=== PATIENT | male | born 1975 | race Caucasian/White ===

== ENCOUNTER 2021-02-02 17:17 | Emergency (ER) | payer OTHER, SELFPAY ==
[2021-02-02 17:31] VITALS: BP 128/97; PULSE 70; RESP 16; TEMP 36.8; O2SAT 96; BMI 37.5
--- NOTE | 2021-02-02 18:35 | ED_ITS ---
HPI - Neuro Symptoms/Deficit General Chief Complaint: Neuro Symptoms/Deficit Stated Complaint: facial drooping Time Seen by Provider: 02/02/21 18:35 Source: patient Mode of arrival: ambulatory Limitations: no limitations History of Present Illness HPI Narrative: Patient has significant past medical history notice right facial numbness and droop 2 days ago unable to close his right eye no other deficit no history of Lyme disease no headache no rash Related Data Previous Rx's Medication Instructions Recorded prednisone 60 mg PO DAILY 7 Days #21 tab 02/02/21 valacyclovir [Valtrex] 1,000 mg PO TID 7 Days #21 tab 02/02/21 white petrolatum-mineral oil 1 appl OPHTHALMIC-RIGHT BEDTIME 02/02/21 [Refresh Lacri-Lube] #3.5 g Allergies Allergy/AdvReac Type Severity Reaction Status Date / Time shrimp [SHRIMP] Allergy Mild SWELLING Unverified 06/11/20 16:34 Cats Allergy Unknown sneezing Uncoded 11/10/15 00:00 shellfish Allergy Unknown Uncoded 10/09/19 00:00 Shrimp Allergy Unknown throat Uncoded 11/10/15 00:00 irritation Review of Systems Review of Systems: Yes all other systems are reviewed and are negative [facility] Past Medical History Medical History HTN (hypertension) Social History Social History Advance Directives: No Advance Directives Information Provided: Yes Physical Exam Vital Signs: Vital Signs: Last Vital Signs Temp 98.2 F 02/02/21 17:31 Pulse 88 02/02/21 19:51 Resp 18 02/02/21 19:51 BP 126/85 02/02/21 19:51 Pulse Ox 97 02/02/21 19:51 Body Mass Index 37.5 Appearance: Alert. Oriented X3. No acute distress. Eyes: PERRLA, No Nystagmus ENT: Pharynx normal. Oral Mucosa moist Neck: Normal inspection. Neck supple. CVS: Normal heart rate and rhythm. Pulses normal. Respiratory: No respiratory distress. Equal air entry bilateral, no wheezing/rales/rhonchi Abdomen: Soft and nontender. Bowel sounds are present, no mass palpable, no CVA tenderness Skin: Skin warm and dry. Normal skin color. Normal skin turgor. Extremities: No lower extremity edema. No calf tenderness Neuro: Oriented X 3. No motor deficit. No sensory deficit.No cerebellar signs , right-sided Coleman's palsy MDM - Neuro Symptoms/Deficit MDM Narrative Medical decision making narrative: Patient with right-sided Coleman's palsy without any other central involvement and symptoms will discharge patient on prednisone and Valtrex Lab Data Labs: Lab Results 02/02/21 Range/Units 18:44 POC Glucose 96 (60-115) mg/dL Discharge Plan Discharge Clinical Impression: Coleman's palsy Patient Disposition: Home, Self-Care Instructions: Coleman Palsy (ED) Additional Instructions: Care of the eyes as advised. Take medication as prescribed. Facial muscle exercises as advised. Follow up with neurologist if not better in 2-3 weeks Prescriptions: New prednisone 20 mg tablet 60 mg PO DAILY 7 Days Qty: 21 RF: 0 valacyclovir [Valtrex] 1 gram tablet 1,000 mg PO TID 7 Days Qty: 21 RF: 0 Refresh Lacri-Lube 56.8-42.5 % ointment 1 appl ophthalmic-Right BEDTIME Qty: 3.5 RF: 2 Referrals: Billy Gan MD [Physician] - 2 weeks Interventions: ED Discharge Assessment Last Done: 02/02/21 19:55 Discharge Date/Time: 02/02/21 19:56
[2021-02-02 18:48] LABS: Glucose, Whole Blood 96 mg/dL (60-115)
[2021-02-02] MEDS: predniSONE 20 MG TABLET 60 MG PO (18:50)
[2021-02-02 19:51] VITALS: BP 126/85; PULSE 88; RESP 18; O2SAT 97
== END 2021-02-02 19:56 | disposition home or self-care (01) ==
PROVIDERS: Emergency Provider Internal Medicine
DX: G51.0 Bell's palsy (principal); I10 Essential (primary) hypertension
CPT/HCPCS: 82947; 99283; 99284

== ENCOUNTER 2021-11-17 17:59 | Emergency (ER) | payer OTHER, SELFPAY ==
--- NOTE | ~2021-11-17 | CT_ITS ---
EXAMINATION: CT ABDOMEN AND PELVIS WITHOUT CONTRAST CLINICAL INFORMATION: Right flank pain, right lower quadrant pain, rule out kidney stone, appendicitis COMPARISON: None. TECHNIQUE: Multidetector volumetric imaging was performed from the lung bases through the pubic symphysis. Sagittal and coronal reformatted images were obtained on the technologist workstation. This CT examination was performed using dose optimization techniques as appropriate, variously including the following: *Automated exposure control *Adjustment of mA and/or kV according to patient size (this includes techniques or standardized protocols for targeted exams where dose is matched to indication/reason for exam; i.e. extremities or head) *Use of iterative reconstruction technique FINDINGS: The lack of intravenous contrast limits evaluation of the solid visceral organs including the liver, spleen, pancreas, and kidneys. LUNG BASES: The visualized lung bases are unremarkable. LIVER, GALLBLADDER, AND BILIARY TREE: Limited non-contrast evaluation is normal. No gross focal hepatic lesion. Normal liver size and contour. No gross biliary ductal dilation. The gallbladder is unremarkable with no evidence of radiopaque gallstones, gallbladder wall thickening, or obvious pericholecystic inflammatory changes. PANCREAS: Limited non-contrast evaluation is normal. No aaron-pancreatic fluid. SPLEEN: Limited non-contrast evaluation is normal. ADRENAL GLANDS: Normal; no adrenal mass. KIDNEYS AND URETERS: Punctate 1 to 2 mm calcification seen in the right renal hilum, possibly nonobstructing calculi or vascular calcifications. No left-sided calculi seen. No hydronephrosis or hydroureter bilaterally. GASTROINTESTINAL TRACT: Small bowel and colon are non-dilated. No bowel wall thickening. No pericolonic inflammatory changes to suggest colitis or diverticulitis. Normal well-seen appendix. ABDOMINAL WALL: No hernia seen. LYMPH NODES: No lymphadenopathy. VASCULAR: Normal caliber abdominal aorta. BLADDER: Unremarkable. PELVIC VISCERA: Normal noncontrast appearance of the prostate and seminal vesicles. OSSEOUS STRUCTURES: No acute or suspicious osseous abnormalities. CT/CT abdomen pelvis wo con IMPRESSION: Normal appendix. No evidence of obstructive uropathy. Tiny 1 to 2 mm calcifications in the right kidney may represent vascular calcifications or nonobstructing calculi.
[2021-11-17 18:02] VITALS: BP 135/96; PULSE 93; RESP 18; TEMP 36.9; O2SAT 96; BMI 38.9
[2021-11-17 18:14] LABS: MANUAL DIFF FLAG NO
[2021-11-17 18:17] LABS: Basophils Absolute Auto 0.1 X10*3/uL (0.0-0.2); Basophils Percent Auto 0.9 % (0-2); Eosinophils Absolute Auto 0.3 X10*3/uL (0.0-0.4); Eosinophils Percent Auto 3.6 % (0-4); Hematocrit 49.5 % (42.0-52.0); Imm Gran Abs Auto 0.01 X10*3/uL (0.00-0.03); Imm Gran Pct Auto 0.1 % (0.0-0.4); Lymphocytes Absolute Auto 1.8 X10*3/uL (1.2-4.9); Lymphocytes Percent Auto 25.8 % (20-40); Mean Corpuscular HGB Conc 34.3 g/dl (31.0-36.0); Mean Corpuscular Hemoglobin 30.9 pg (27.0-33.0); Mean Corpuscular Volume 89.8 fL (80.0-98.0); Mean Platelet Volume 10.7 fL (9.4-12.4); Monocytes Absolute Auto 0.5 X10*3/uL (0.1-1.2); Monocytes Percent Auto 6.7 % (2-11); Neutrophils Absolute Auto 4.4 x10*3/uL (2.0-8.3); Neutrophils Percent Auto 62.9 % (45-73); Platelet Count 226 X10*3/uL (160-400); Red Blood Count 5.51 X10*6/uL (4.60-5.80); White Blood Count 6.9 X10*3/uL (4.8-10.8)
[2021-11-17 18:28] LABS: Anion Gap 13 (12-20); Blood Urea Nitrogen 17 mg/dL (9-16); Calcium 9.5 mg/dL (8.4-10.2); Carbon Dioxide 24 mmol/L (22-29); Chloride 105 mmol/L (96-108); Creatinine Clr Calc Pharmacy 97.3; Estimated Glomerular Filt Rate 56; Glucose Random 108 mg/dL (60-115); Potassium 4.2 mmol/L (3.3-5.1); Sodium 138 mmol/L (135-145)
[2021-11-17 18:34] LABS: Appearance Urine CLEAR; Color Urine DK YELLOW; Glucose Urine UA NEG (NEG); Leukocyte Esterase Urine NEG (NEG); Nitrite Urine NEG (NEG); PH 5.5 (5.0-8.0); Specific Gravity - Urine >= 1.030 (1.005-1.025); Urine Blood NEG (NEG); Urine Ketones NEG (NEG); Urine Protein NEG (NEG-TRACE)
[2021-11-17 18:49] LABS: Amorphous Sediment Urine 1+ /LPF; Mucus Urine 4+ /LPF; RBC Urine 0-2 /HPF (0); Squamous Epithelial Cell Urine 2+ /LPF; WBC Urine 0 /HPF (0-4)
[2021-11-17 20:27] VITALS: BP 146/95; PULSE 78; RESP 18; TEMP 36.9; O2SAT 96
--- NOTE | 2021-11-17 20:27 | ED_ITS ---
HPI - Abdominal Pain General Chief Complaint: Abdominal Pain Stated Complaint: sharp pain right side abd Time Seen by Provider: 11/17/21 20:08 Source: patient Mode of arrival: ambulatory Limitations: no limitations History of Present Illness HPI narrative: 45-year-old male who presents emergency department for evaluation of right sided abdominal pain x3 days. Patient states that 3 days prior the pain came on gra dually. He states initially the pain was intermittent and worse with movement however the pain then became constant. He describes the pain as a burning sensation. The pain is 5/10 at its worst. The patient states that he had kidney stones proximally 3 years prior and the pain was different with his kidney stone. He states that that time he felt the urge to move his bowels and the pain was more of a sharp pain which was 8/10. The patient denied fever, chills, sore throat, cough, chest pain, shortness of breath, nausea, vomiting, diarrhea, changes bowel movements. He denied frequency, urgency or dysuria. He has not noticed any hematuria. He did not take any medications for his pain. Patient states that he received 2 COVID 19 opentabs vaccinations and a booster vaccination. Related Data Previous Rx's Medication Instructions Recorded prednisone 20 mg tablet 60 mg PO DAILY 7 Days #21 tab 02/02/21 valacyclovir 1 gram tablet 1,000 mg PO TID 7 Days #21 tab 02/02/21 (Valtrex) white petrolatum-mineral oil 56.8 1 appl OPHTHALMIC-RIGHT BEDTIME 02/02/21 %-42.5 % eye ointment (Refresh #3.5 g Lacri-Lube) morphine 15 mg immediate release 15 mg PO Q4-6H PRN #10 tab 11/17/21 tablet valacyclovir 1 gram tablet 1,000 mg PO Q8H 7 Days #21 tab 11/17/21 (Valtrex) Allergies Allergy/AdvReac Type Severity Reaction Status Date / Time shrimp [SHRIMP] Allergy Mild SWELLING Verified 11/17/21 18:02 Cats Allergy Unknown sneezing Uncoded 11/17/21 18:02 shellfish Allergy Unknown Swelling Uncoded 11/17/21 18:02 Shrimp Allergy Unknown throat Uncoded 11/17/21 18:02 irritation Review of Systems Review of Systems Yes all other systems are reviewed and are negative [facility] Past Medical History [facility] Narrative: Past medical history: Hypertension, palpitations, kidney stones. Past surgical history: None. Social history: The patient states he vapes nicotine products daily. He denies drinking alcohol recently and states she rarely drinks alcohol. He does use marijuana edibles. Medical History HTN (hypertension) Social History Social History Alcohol intake: current Patient Tobacco Use Status: Current everyday Tobacco user Smoked in Last 30 Days: Yes Use of substances other than those prescribed or required for medical reasons: Yes Substance Use Type: Marijuana Advance Directives: No Physical Exam ED Vital Signs: Vital Signs - 24 hr 11/17/21 18:02 11/17/21 20:27 11/17/21 22:00 Temperature 98.5 F 98.5 F Pulse Rate 93 78 78 Respiratory Rate 18 18 15 Blood Pressure 135/96 H 146/95 H 150/140 H Pulse Oximetry 96 96 98 11/17/21 22:24 Temperature Pulse Rate Respiratory Rate 15 Blood Pressure Pulse Oximetry BMI result Body Mass Index 38.9 Const General: cooperative and no acute distress Orientation/consciousness: oriented to person and oriented to place Limitations: no limitations HENMT Head: Yes normal to inspection, Yes normocephalic and Yes atraumatic Ears: external ears normal General nose exam: Normal external nose present Face and sinus: Yes normal facial exam Mouth: Normal oral and palatal mucosa present Throat: Yes posterior oropharynx normal Eyes General: appearance normal, both eyes and all related structures Pupils: Equal, round and reactive pupils present Neck Neck: Yes normal visual inspection, Yes no lymphadenopathy, Yes trachea midline and Yes supple Chest Chest palpation & inspection: normal inspection of the chest and normal p alpation of entire chest wall Resp Effort & Inspection: normal respiratory effort and able to speak in complete sentences Auscultation: clear to auscultation bilaterally Cardio Rate: regular rate Rhythm: regular rhythm Heart sounds: S1 normal heart sound present, S2 normal heart sound present and no murmurs GI Inspection: Yes normal to inspection Palpation (GI): Soft to palpation, Tenderness to palpation present (GI) in the RLQ (Moderate) and no guarding Auscultation: normal bowel sounds General: Yes no CVA tenderness Back/Spine/Pelvis Back: no CVA tenderness Skin General skin exam: no rashes or lesions noted Neuro General: oriented to person and oriented to place Cranial nerves: Yes CN's II-XII intact bilaterally and Yes Equal, round and reactive pupils present Cognition (Neuro): normal cognition Motor exam (neuro): 5/5 motor strength present throughout Extrem General: Yes normal to inspection Psych Appearance: grossly normal Speech and movement: Normal speech and movement present Affect: normal affect Attitude: cooperative Thought process: Normal thought process present Thought content: Normal thought content present Course Course Course Narrative: 45-year-old male who presents emergency department for evaluation of 3 days of right lower abdominal burning sensation which is been constant. Patient had no other significant symptoms. Vital signs revealed an elevated blood pressure of 135/96 otherwise was unremarkable. Physical examination revealed no rash on the right side of the patient's body. The patient did have right lower abdominal tenderness. Differential includes was not limited to appendicitis, renal colic, ureteral stone, herpes zoster, diverticulitis. Patient had a laboratory evaluation which included a CBC, BMP, urinalysis which was unremarkable. I did order a CT scan of the abdomen pelvis without oral contrast. His pain was treated with both ibuprofen 600 mg orally and Tylenol 975 mg orally. 2305: CT scan of the patient's abdomen pelvis without IV contrast revealed a normal appearing appendix, there was no evidence of an obstructing kidney stone. The patient had a 1-2 mm right kidney stone which is not causes pain. The patient got no relief his pain with oral ibuprofen and Tylenol. He was given morphine 8 mg IM with significant improvement. I did discuss abdominal pain of unclear etiology in shines with the patient. The patient was advised to take Tylenol ibuprofen for pain and for pain not relieved by these medications he was prescribed morphine. He was also given a prescription for valacyclovir the take in the event that he develops a rash. Was advised to follow-up with his PC P and return if his symptoms get worse. MDM - Abdominal Pain Lab Data Result diagrams: 11/17/21 18:10 11/17/21 18:10 Labs: Lab Results 11/17/21 11/17/21 11/17/21 Range/Units 18:10 18:10 18:27 WBC 6.9 (4.8-10.8) X10*3/uL RBC 5.51 (4.60-5.80) X10*6/uL Hgb 17.0 (14.0-18.0) g/dl Hct 49.5 (42.0-52.0) % MCV 89.8 (80.0-98.0) fL MCH 30.9 (27.0-33.0) pg MCHC 34.3 (31.0-36.0) g/dl RDW 12.0 (11.0-16.0) % Plt Count 226 (160-400) X10*3/uL MPV 10.7 (9.4-12.4) fL Immature Gran % (Auto) 0.1 (0.0-0.4) % Neut % (Auto) 62.9 (45-73) % Lymph % (Auto) 25.8 (20-40) % [place] % (Auto) 6.7 (2-11) % Eos % (Auto) 3.6 (0-4) % Baso % (Auto) 0.9 (0-2) % Lymph # (Auto) 1.8 (1.2-4.9) X10*3/uL [place] # (Auto) 0.5 (0.1-1.2) X10*3/uL Eos # (Auto) 0.3 (0.0-0.4) X10*3/uL Baso # (Auto) 0.1 (0.0-0.2) X10*3/uL Abs Immat Gran (auto) 0.01 (0.00-0.03) X10*3/uL Absolute Neuts (auto) 4.4 (2.0-8.3) x10*3/uL Absolute Nucleated RBC 0.000 (0.0-0.012) X10*3/uL Nucleated RBC % (auto) 0.0 (0.0-0.2) /100WBC Sodium 138 (135-145) mmol/L Potassium 4.2 (3.3-5.1) mmol/L Chloride 105 (96-108) mmol/L Carbon Dioxide 24 (22-29) mmol/L Anion Gap 13 (12-20) BUN 17 H (9-16) mg/dL Creatinine 1.39 (0.5-1.4) mg/dL Estim Creat Clear Calc 97.3 Estimated GFR 56 Random Glucose 108 (60-115) mg/dL Calcium 9.5 (8.4-10.2) mg/dL Urine Color DK YELLOW Urine Appearance CLEAR Urine pH 5.5 (5.0-8.0) Ur Specific [place] >= 1.030 H (1.005-1.025) Urine Protein NEG (NEG-TRACE) MG/DL Urine Glucose (UA) NEG (NEG) MG/DL Urine Ketones NEG (NEG) MG/DL Urine Blood NEG (NEG) Urine Nitrite NEG (NEG) Ur Leukocyte Esterase NEG (NEG) Urine RBC 0-2 (0) /HPF Urine WBC 0 (0-4) /HPF Ur Squamous Epith Cells 2+ /LPF Amorphous Sediment 1+ /LPF Urine Bacteria NONE /LPF Urine Mucus 4+ /LPF Discharge Plan Discharge Clinical Impression: Abdominal pain Patient Disposition: Home, Self-Care Instructions: Abdominal Pain (ED), Shingles (ED) Additional Instructions: Your laboratory evaluation was unremarkable. Your urine was unremarkable. The CT scan of your abdomen pelvis without IV contrast revealed a normal calista earing appendix. There was no evidence for obstructing kidney stone or kidney stone in ureter. You have 1 or 2 1 mm stones in your right kidney however these are not causing her pain. At this time, I do not have a clear cause for your pain however if you developed a rash on the right side of your abdomen then you most likely have shingles. If you developed this rash then take the valacyclovir as prescribed. Take ibuprofen 200 mg pills, 3 pills every 6 hours as needed for pain. Take Tylenol (acetaminophen) 2 pills every 4-6 hours as needed for pain. For pain not relieved by ibuprofen or Tylenol take morphine 15 mg pills, 1 pill every 4 hours as needed for pain. This medication will make you sleepy, do not drive or work while taking this medication. Morphine is a narcotic medication and can be addicting. If you are concerned about addiction you can ask the pharmacist for less pills or do not get this prescription filled. Follow-up with your doctor in 2 days. Please return to the emergency department if your symptoms get worse or if you develop any symptoms that are concerning to you. Prescriptions: New morphine 15 mg tablet 15 mg PO Q4-6H PRN (Reason: pain) Qty: 10 0RF Rx Instructions: The patient may ask for partial fill valacyclovir [Valtrex] 1 gram tablet 1,000 mg PO Q8H 7 Days Qty: 21 0RF No Action prednisone 20 mg tablet 60 mg PO DAILY 7 Days Qty: 21 0RF valacyclovir [Valtrex] 1 gram tablet 1,000 mg PO TID 7 Days Qty: 21 0RF Refresh Lacri-Lube 56.8-42.5 % ointment 1 appl ophthalmic-Right BEDTIME Qty: 3.5 2RF
[2021-11-17] MEDS: Ibuprofen 600 MG TABLET PO (20:37)
[2021-11-17] MEDS: Acetaminophen 325 MG TABLET 975 MG PO (20:37)
[2021-11-17 22:00] VITALS: BP 150/140; PULSE 78; RESP 15; O2SAT 98
[2021-11-17 22:24] VITALS: RESP 15
[2021-11-17] MEDS: Morphine Sulfate 10 MG/ML CARTRIDGE 8 MG IM (22:24)
== END 2021-11-17 23:21 | disposition home or self-care (01) ==
PROVIDERS: Emergency Provider Emergency Medicine Emergency Medical Services
DX: R10.31 Right lower quadrant pain (principal); I10 Essential (primary) hypertension; F17.290 Nicotine dependence, other tobacco product, uncomplicated
CPT/HCPCS: 36415; 74176; 80048; 81001; 85025; 96372; 99284; J2270

== ENCOUNTER 2021-12-31 19:09 | Emergency (ER) | payer OTHER, SELFPAY ==
--- NOTE | ~2021-12-31 | XR_ITS ---
EXAMINATION: XR chest 1V CLINICAL INFORMATION: Reason for Exam dyspnea COMPARISON: Chest radiograph 09/25/2019 TECHNIQUE: One view of the chest XR/XR chest 1V FINDINGS/IMPRESSION: Clear lungs. No pneumothorax. No pleural effusion. Normal cardiomediastinal silhouette.
--- NOTE | 2021-12-31 19:13 | ECG_ITS ---
Test Reason : IRREGULAR HEARTBEAT Blood Pressure : / mmHG Vent. Rate : 129 BPM Atrial Rate : 000 BPM P-R Int : 000 ms QRS Dur : 092 ms QT Int : 322 ms P-R-T Axes : 000 -20 060 degrees QTc Int : 471 ms Atrial fibrillation with rapid ventricular response Abnormal ECG When compared with ECG of 25-SEP-2019 21:28, Atrial fibrillation has replaced Sinus rhythm Vent. rate has increased BY 50 BPM Referred By: Generic ED Physician Electronically Signed By:CLIVE TA MD
[2021-12-31 19:38] VITALS: BP 131/88; PULSE 74; RESP 19; TEMP 36.6; O2SAT 96; BMI 37.8
[2021-12-31 19:47] LABS: MANUAL DIFF FLAG NO
[2021-12-31 19:50] LABS: Basophils Absolute Auto 0.1 X10*3/uL (0.0-0.2); Basophils Percent Auto 0.6 % (0-2); Eosinophils Absolute Auto 0.2 X10*3/uL (0.0-0.4); Eosinophils Percent Auto 1.7 % (0-4); Hematocrit 51.4 % (42.0-52.0); Hemoglobin 17.6 g/dl (14.0-18.0); Imm Gran Abs Auto 0.03 X10*3/uL (0.00-0.03); Imm Gran Pct Auto 0.3 % (0.0-0.4); Lymphocytes Percent Auto 21.1 % (20-40); Mean Corpuscular HGB Conc 34.2 g/dl (31.0-36.0); Mean Corpuscular Hemoglobin 30.2 pg (27.0-33.0); Mean Corpuscular Volume 88.2 fL (80.0-98.0); Mean Platelet Volume 10.5 fL (9.4-12.4); Monocytes Absolute Auto 0.8 X10*3/uL (0.1-1.2); Monocytes Percent Auto 8.5 % (2-11); Neutrophils Absolute Auto 6.4 x10*3/uL (2.0-8.3); Neutrophils Percent Auto 67.8 % (45-73); Platelet Count 281 X10*3/uL (160-400); Red Blood Count 5.83 X10*6/uL (4.60-5.80); Red Cell Distribution Width 12.3 % (11.0-16.0); White Blood Count 9.4 X10*3/uL (4.8-10.8)
[2021-12-31 20:00] LABS: Anion Gap 15 (12-20); Blood Urea Nitrogen 14 mg/dL (9-16); Calcium 9.6 mg/dL (8.4-10.2); Carbon Dioxide 22 mmol/L (22-29); Chloride 105 mmol/L (96-108); Estimated Glomerular Filt Rate > 60; Glucose Random 112 mg/dL (60-115); Potassium 4.2 mmol/L (3.3-5.1); Sodium 138 mmol/L (135-145)
[2021-12-31 20:07] LABS: Troponin-I High Sensitivity < 3.5 ng/L (<3.5-35.0)
--- NOTE | 2022-01-01 00:19 | ED_ITS ---
HPI - Chest Pain General Chief Complaint: Chest Pain Stated Complaint: irregular heart beat, SoB Time Seen by Provider: 01/01/22 00:18 Source: patient Mode of arrival: ambulatory Limitations: no limitations History of Present Illness MD complaint: other (palpitations chest heaviness, dyspnea) Pertinent past history: other (similar symptoms but not this long could never find a reason with head nurse) Onset (ago): day(s) (3am) Timing of current episode: constant Prior episodes: Yes Onset: other (he was drinking ETOH heavily last night) Pain location: substernal Pain radiation: none Severity: moderate Quality: heaviness Relieving factors: nothing Exacerbating factors: other (ETOH) Context: other (ETOH use, did take his metoprolol today) Associated symptoms: dyspnea and palpitations Related Data Previous Rx's Medication Instructions Recorded prednisone 20 mg tablet 60 mg PO DAILY 7 Days #21 tab 02/02/21 valacyclovir 1 gram tablet 1,000 mg PO TID 7 Days #21 tab 02/02/21 (Valtrex) white petrolatum-mineral oil 56.8 1 appl OPHTHALMIC-RIGHT BEDTIME 02/02/21 %-42.5 % eye ointment (Refresh #3.5 g Lacri-Lube) morphine 15 mg immediate release 15 mg PO Q4-6H PRN #10 tab 11/17/21 tablet valacyclovir 1 gram tablet 1,000 mg PO Q8H 7 Days #21 tab 11/17/21 (Valtrex) apixaban 5 mg tablet (Eliquis) 5 mg PO BID #14 tab 01/01/22 metoprolol succinate 50 mg 50 mg PO DAILY #10 tab 01/01/22 tablet,extended release 24 hr Allergies Allergy/AdvReac Type Severity Reaction Status Date / Time shrimp [SHRIMP] Allergy Mild SWELLING Verified 11/17/21 18:02 Cats Allergy Unknown sneezing Uncoded 11/17/21 18:02 shellfish Allergy Unknown Swelling Uncoded 11/17/21 18:02 Shrimp Allergy Unknown throat Uncoded 11/17/21 18:02 irritation Review of Systems Review of Systems: Constitutional : No Fever, No Chills ENT/Mouth : No sore throat, No Rhinorrhea, No Swallowing Difficulty Eyes: No Eye Pain, No Swelling, No Redness Cardiovascular : pos Chest Pain, positive SOB, No Orthopnea, no Edema, pos palpitations Respiratory : No Cough, No Sputum, No Wheezing, positive dyspnea Gastrointestinal : No Nausea, No Vomiting, No Diarrhea, No abdominal Pain, No Hematochezia, No Melena Genitourinary : No Dysuria, No Urinary Frequency, No Hematuria Musculoskeletal : No joint pain, No Myalgias Skin : No Skin Lesions, No rash Neuro : No Weakness, No Numbness, No Dizziness, No Headache Psych : No Anxiety/Panic, No Depression Heme/Lymph: No Bruising, No Lymphadenopathy Endocrine : No Polyuria, No Polydipsia All other systems reviewed and are negative [facility] Past Medical History Attestation statement: The following information was validated with the patient. Medical History HTN (hypertension) Social History Social History (Updated 01/01/22 @ 00:32 by Kisha Hernandez DO) Alcohol intake: current Patient Tobacco Use Status: Current everyday Tobacco user Substance Use Type: Marijuana Advance Directives: No Advance Directives Information Provided: Yes Physical Exam Vital Signs: Vital Signs: Last Vital Signs Temp 97.9 F 12/31/21 19:38 Pulse 105 H 01/01/22 03:59 Resp 15 01/01/22 03:59 BP 116/75 01/01/22 03:59 Pulse Ox 95 01/01/22 03:59 BMI result Body Mass Index 37.8 Appearance: Alert. Oriented X3. No acute distress. Eyes: Pupils equal, round and reactive to light. ENT: Pharynx normal. Neck: Normal inspection. Neck supple. CVS: irregular and tachycardic heart rate and rhythm. Pulses normal. Respiratory: No respiratory distress. Breath sounds normal. Abdomen: Soft and non-tender. Skin: Skin warm and dry. Normal skin color. Normal skin turgor. Extremities: No lower extremity edema. No calf ttp Neuro: Oriented X 3. No motor deficit. No sensory deficit. Course Course Course Narrative: stil in afib but rates down to 90s, BP stable repeat lopressor x 2 HR down to 80/90s will dc home on increased metoprolol 50mg daily and eliquis until he sees head nurse suspect he will break at home MDM - Chest Pain MDM Narrative Medical decision making narrative: 46 yo male with hx of HTN, prior feelings of dyspnea/chest pain no causes found with head nurse put on metoprolol 25 daily - today he was drinking ETOH heavil y and developed cp/sob and palpitations since 3am. He was in rapid afib on EKG on arrival to the ED. Likely precipitated by ETOH. At this time will obtain repeat labs, IV lopressor. Dispo per results and rate control. Chadsvasc score is 1 for HTN Lab Data Result diagrams: 12/31/21 19:35 12/31/21 19:35 Labs: Lab Results 12/31/21 12/31/21 12/31/21 Range/Units 19:35 19:35 19:35 WBC 9.4 (4.8-10.8) X10*3/uL RBC 5.83 H (4.60-5.80) X10*6/uL Hgb 17.6 (14.0-18.0) g/dl Hct 51.4 (42.0-52.0) % MCV 88.2 (80.0-98.0) fL MCH 30.2 (27.0-33.0) pg MCHC 34.2 (31.0-36.0) g/dl RDW 12.3 (11.0-16.0) % Plt Count 281 (160-400) X10*3/uL MPV 10.5 (9.4-12.4) fL Immature Gran % (Auto) 0.3 (0.0-0.4) % Neut % (Auto) 67.8 (45-73) % Lymph % (Auto) 21.1 (20-40) % [place] % (Auto) 8.5 (2-11) % Eos % (Auto) 1.7 (0-4) % Baso % (Auto) 0.6 (0-2) % Lymph # (Auto) 2.0 (1.2-4.9) X10*3/uL [place] # (Auto) 0.8 (0.1-1.2) X10*3/uL Eos # (Auto) 0.2 (0.0-0.4) X10*3/uL Baso # (Auto) 0.1 (0.0-0.2) X10*3/uL Abs Immat Gran (auto) 0.03 (0.00-0.03) X10*3/uL Absolute Neuts (auto) 6.4 (2.0-8.3) x10*3/uL Absolute Nucleated RBC 0.000 (0.0-0.012) X10*3/uL Nucleated RBC % (auto) 0.0 (0.0-0.2) /100WBC PT (9.9-13.0) SEC INR (0.9-1.1) APTT (24.1-38.0) SEC D-Dimer High Sensitivty NG/ML Sodium 138 (135-145) mmol/L Potassium 4.2 (3.3-5.1) mmol/L Chloride 105 (96-108) mmol/L Carbon Dioxide 22 (22-29) mmol/L Anion Gap 15 (12-20) BUN 14 (9-16) mg/dL Creatinine 1.08 (0.5-1.4) mg/dL Estim Creat Clear Calc 122.0 Estimated GFR > 60 Random Glucose 112 (60-115) mg/dL Calcium 9.6 (8.4-10.2) mg/dL Magnesium (1.6-2.6) mg/dL Troponin I High Sens < 3.5 (<3.5-35.0) ng/L TSH (0.32-4.0) uIU/mL Ethyl Alcohol mg/dL 01/01/22 01/01/22 01/01/22 Range/Units 00:42 00:42 00:42 WBC (4.8-10.8) X10*3/uL RBC (4.60-5.80) X10*6/uL Hgb (14.0-18.0) g/dl Hct (42.0-52.0) % MCV (80.0-98.0) fL MCH (27.0-33.0) pg MCHC (31.0-36.0) g/dl RDW (11.0-16.0) % Plt Count (160-400) X10*3/uL MPV (9.4-12.4) fL Immature Gran % (Auto) (0.0-0.4) % Neut % (Auto) (45-73) % Lymph % (Auto) (20-40) % [place] % (Auto) (2-11) % Eos % (Auto) (0-4) % Baso % (Auto) (0-2) % Lymph # (Auto) (1.2-4.9) X10*3/uL [place] # (Auto) (0.1-1.2) X10*3/uL Eos # (Auto) (0.0-0.4) X10*3/uL Baso # (Auto) (0.0-0.2) X10*3/uL Abs Immat Gran (auto) (0.00-0.03) X10*3/uL Absolute Neuts (auto) (2.0-8.3) x10*3/uL Absolute Nucleated RBC (0.0-0.012) X10*3/uL Nucleated RBC % (auto) (0.0-0.2) /100WBC PT 12.0 (9.9-13.0) SEC INR 1.1 (0.9-1.1) APTT 34.2 (24.1-38.0) SEC D-Dimer High Sensitivty < 150 NG/ML Sodium (135-145) mmol/L Potassium (3.3-5.1) mmol/L Chloride (96-108) mmol/L Carbon Dioxide (22-29) mmol/L Anion Gap (12-20) BUN (9-16) mg/dL Creatinine (0.5-1.4) mg/dL Estim Creat Clear Calc Estimated GFR Random Glucose (60-115) mg/dL Calcium (8.4-10.2) mg/dL Magnesium 2.3 (1.6-2.6) mg/dL Troponin I High Sens 5.0 (<3.5-35.0) ng/L TSH 1.72 (0.32-4.0) uIU/mL Ethyl Alcohol mg/dL 01/01/22 Range/Units 00:42 WBC (4.8-10.8) X10*3/uL RBC (4.60-5.80) X10*6/uL Hgb (14.0-18.0) g/dl Hct (42.0-52.0) % MCV (80.0-98.0) fL MCH (27.0-33.0) pg MCHC (31.0-36.0) g/dl RDW (11.0-16.0) % Plt Count (160-400) X10*3/uL MPV (9.4-12.4) fL Immature Gran % (Auto) (0.0-0.4) % Neut % (Auto) (45-73) % Lymph % (Auto) (20-40) % [place] % (Auto) (2-11) % Eos % (Auto) (0-4) % Baso % (Auto) (0-2) % Lymph # (Auto) (1.2-4.9) X10*3/uL [place] # (Auto) (0.1-1.2) X10*3/uL Eos # (Auto) (0.0-0.4) X10*3/uL Baso # (Auto) (0.0-0.2) X10*3/uL Abs Immat Gran (auto) (0.00-0.03) X10*3/uL Absolute Neuts (auto) (2.0-8.3) x10*3/uL Absolute Nucleated RBC (0.0-0.012) X10*3/uL Nucleated RBC % (auto) (0.0-0.2) /100WBC PT (9.9-13.0) SEC INR (0.9-1.1) APTT (24.1-38.0) SEC D-Dimer High Sensitivty NG/ML Sodium (135-145) mmol/L Potassium (3.3-5.1) mmol/L Chloride (96-108) mmol/L Carbon Dioxide (22-29) mmol/L Anion Gap (12-20) BUN (9-16) mg/dL Creatinine (0.5-1.4) mg/dL Estim Creat Clear Calc Estimated GFR Random Glucose (60-115) mg/dL Calcium (8.4-10.2) mg/dL Magnesium (1.6-2.6) mg/dL Troponin I High Sens (<3.5-35.0) ng/L TSH (0.32-4.0) uIU/mL Ethyl Alcohol < 10 mg/dL ECG Data ECG #1: Attestation: I personally reviewed and interpreted this ECG as follows: ECG interpretation date: 01/01/22 ECG interpretation time: 00:21 Interpretation: Rate: 129 Rhythm: afib with RVR [place]: left Normal QRS complex. ST T wave : nonspecific, no TSERING qTC: normal prior studies: changed from prior The study has been interpreted contemporaneously by me. . Discharge Plan Discharge Clinical Impression: Atrial fibrillation with rapid ventricular response Patient Disposition: Home, Self-Care Instructions: A-fib (Atrial Fibrillation) (ED), Blood Thinners (ED) Additional Instructions: return to ED for any worsening symptoms or concerns increase metoprolol to 50mg daily eliquis if you fall and hit your head you need to get checked out, black or blood stools is not normal do not take motrin/aleve/ibuprofen call your head nurse on monday NO ALCOHOL Prescriptions: New metoprolol succinate 50 mg tablet extended release 24 hr 50 mg PO DAILY Qty: 10 0RF Eliquis 5 mg tablet 5 mg PO BID Qty: 14 0RF No Action prednisone 20 mg tablet 60 mg PO DAILY 7 Days Qty: 21 0RF valacyclovir [Valtrex] 1 gram tablet 1,000 mg PO TID 7 Days Qty: 21 0RF Refresh Lacri-Lube 56.8-42.5 % ointment 1 appl ophthalmic-Right BEDTIME Qty: 3.5 2RF morphine 15 mg tablet 15 mg PO Q4-6H PRN (Reason: pain) Qty: 10 0RF Rx Instructions: The patient may ask for partial fill valacyclovir [Valtrex] 1 gram tablet 1,000 mg PO Q8H 7 Days Qty: 21 0RF Stand Alone Forms: Work/School Release
[2022-01-01 00:33] VITALS: BP 136/89; PULSE 88; RESP 20; O2SAT 98
[2022-01-01 00:55] LABS: INTERNATIONAL NORM RATIO 1.1 (0.9-1.1)
[2022-01-01] MEDS: Metoprolol Tartrate 5 MG/5 ML VIAL IVPUSH ×2 (00:56→02:05)
[2022-01-01 00:58] LABS: Partial Thromboplastin Time 34.2 SEC (24.1-38.0)
[2022-01-01 01:03] LABS: Magnesium 2.3 mg/dL (1.6-2.6)
[2022-01-01 01:05] LABS: Ethanol < 10 mg/dL
[2022-01-01 01:06] VITALS: BP 137/98; PULSE 98; RESP 18; O2SAT 96
[2022-01-01 01:19] LABS: D Dimer High Sensitivity < 150 NG/ML
[2022-01-01 01:24] LABS: TSH reflex Free T4 1.72 uIU/mL (0.32-4.0)
[2022-01-01 02:18] VITALS: BP 143/95; PULSE 104; RESP 19; O2SAT 97
[2022-01-01 03:24] VITALS: BP 118/89; PULSE 95; RESP 14; O2SAT 96
[2022-01-01] MEDS: Metoprolol Tartrate 5 MG/5 ML VIAL 2.5 MG IVPUSH (03:25)
[2022-01-01 03:59] VITALS: BP 116/75; PULSE 105; RESP 15; O2SAT 95
[2022-01-01 04:58] VITALS: BP 106/76; PULSE 90; RESP 14; O2SAT 98
[2022-01-01] MEDS: Apixaban 5 MG TABLET PO (05:02)
== END 2022-01-01 05:50 | disposition home or self-care (01) ==
PROVIDERS: Emergency Provider Emergency Medicine
DX: I48.20 Chronic atrial fibrillation, unspecified (principal); R07.89 Other chest pain; R06.02 Shortness of breath; Z79.899 Other long term (current) drug therapy
CPT/HCPCS: 36415; 71045; 80048; 82077; 83735; 84443; 84484; 85025; 85379; 85610; 85730; 93005; 96374; 96375; 96376; 99284

== ENCOUNTER 2022-08-19 22:36 | Emergency (ER) | payer OTHER, SELFPAY ==
--- NOTE | 2022-08-19 | ECG_ITS ---
Test Reason : SOB/WEEZE Blood Pressure : / mmHG Vent. Rate : 068 BPM Atrial Rate : 068 BPM P-R Int : 138 ms QRS Dur : 098 ms QT Int : 412 ms P-R-T Axes : 072 -09 061 degrees QTc Int : 438 ms Normal sinus rhythm Incomplete right bundle branch block Nonspecific T wave abnormality Anterior leads Abnormal ECG When compared with ECG of 31-DEC-2021 19:41, Sinus rhythm has replaced Atrial fibrillation Vent. rate has decreased BY 61 BPM Incomplete right bundle branch block is now Present Referred By: Generic ED Physician Electronically Signed By:LENA CHRISTY MD
--- NOTE | ~2022-08-19 | XR_ITS ---
EXAMINATION: XR CHEST CLINICAL INFORMATION: Cough COMPARISON: 12/31/2021 TECHNIQUE: 2 views of the chest were obtained. FINDINGS: The lungs are well expanded. There is no focal consolidation, edema, or effusion. No pneumothorax. The cardiomediastinal silhouette is within normal limits. No acute osseous abnormality. XR/XR chest 2V IMPRESSION: Clear lungs.
[2022-08-19 23:07] LABS: MANUAL DIFF FLAG NO
[2022-08-19 23:09] LABS: Basophils Absolute Auto 0.1 X10*3/uL (0.0-0.2); Basophils Percent Auto 1.4 % (0-2); Eosinophils Absolute Auto 0.7 X10*3/uL (0.0-0.4); Hemoglobin 16.8 g/dl (14.0-18.0); Imm Gran Abs Auto 0.02 X10*3/uL (0.00-0.03); Imm Gran Pct Auto 0.3 % (0.0-0.4); Lymphocytes Absolute Auto 2.8 X10*3/uL (1.2-4.9); Lymphocytes Percent Auto 36.1 % (20-40); Mean Corpuscular Hemoglobin 30.7 pg (27.0-33.0); Mean Corpuscular Volume 87.8 fL (80.0-98.0); Mean Platelet Volume 10.2 fL (9.4-12.4); Monocytes Absolute Auto 0.6 X10*3/uL (0.1-1.2); Monocytes Percent Auto 8.2 % (2-11); Neutrophils Absolute Auto 3.5 x10*3/uL (2.0-8.3); Platelet Count 226 X10*3/uL (160-400); Red Blood Count 5.47 X10*6/uL (4.60-5.80); White Blood Count 7.9 X10*3/uL (4.8-10.8)
[2022-08-19 23:18] VITALS: BP 146/71; PULSE 76; RESP 16; TEMP 36.7; O2SAT 98; BMI 33.9
[2022-08-19 23:22] LABS: IDNOW Serial# BCCEAD1C; Influenza A Negative (Negative); Influenza B2 Negative (Negative)
[2022-08-19 23:27] LABS: Troponin-I High Sensitivity < 3.5 ng/L (<3.5-35.0)
[2022-08-19 23:28] LABS: Alanine Aminotransferase 37 U/L (0-40); Albumin Level 4.6 g/dL (3.5-5.0); Alkaline Phosphatase 104 U/L (39-117); Anion Gap 17 (12-20); Aspartate Amino Transferase 31 U/L (5-37); Bilirubin Total 0.6 mg/dL (0.0-1.0); Blood Urea Nitrogen 17 mg/dL (9-16); Calcium 9.5 mg/dL (8.4-10.2); Carbon Dioxide 20 mmol/L (22-29); Chloride 103 mmol/L (96-108); Creatinine Clr Calc Pharmacy 102.7; Estimated Glomerular Filt Rate > 60; Glucose Random 113 mg/dL (60-115); Potassium 4.1 mmol/L (3.3-5.1); Sodium 136 mmol/L (135-145); Total Protein 7.8 g/dL (6.5-8.0)
--- NOTE | 2022-08-20 00:48 | ED_ITS ---
HPI - URI/Sore Throat General Chief Complaint: Dyspnea Stated Complaint: difficulty breathing Time Seen by Provider: 08/20/22 00:16 Source: patient Mode of arrival: ambulatory Limitations: no limitations History of Present Illness HPI Narrative: Patient history of lone atrial fibrillation on aspirin and Eliquis being having cough bouts with mucus took aspirin got better no fever no chills no runny nose Related Data Previous Rx's Medication Instructions Recorded prednisone 20 mg tablet 60 mg PO DAILY 7 days #21 tabs 02/02/21 valacyclovir 1 gram tablet 1,000 mg PO TID 7 days #21 tabs 02/02/21 (Valtrex) white petrolatum-mineral oil 56.8 1 appl ophthalmic-Right BEDTIME 02/02/21 %-42.5 % eye ointment (Refresh #3.5 grams Lacri-Lube) morphine 15 mg immediate release 15 mg PO Q4-6H PRN pain #10 tabs 11/17/21 tablet valacyclovir 1 gram tablet 1,000 mg PO Q8H 7 days #21 tabs 11/17/21 (Valtrex) apixaban 5 mg tablet (Eliquis) 5 mg PO BID #14 tabs 01/01/22 metoprolol succinate 50 mg 50 mg PO DAILY #10 tabs 01/01/22 tablet,extended release 24 hr albuterol sulfate 90 mcg/actuation 2 puff inhalation Q4-6H PRN 08/20/22 aerosol inhaler (ProAir HFA) shortness of breath or wheezing #8.5 grams prednisone 20 mg tablet 40 mg PO DAILY #10 tabs 08/20/22 Allergies Allergy/AdvReac Type Severity Reaction Status Date / Time shrimp [SHRIMP] Allergy Mild SWELLING Verified 11/17/21 18:02 Cats Allergy Unknown sneezing Uncoded 11/17/21 18:02 shellfish Allergy Unknown Swelling Uncoded 11/17/21 18:02 Shrimp Allergy Unknown throat Uncoded 11/17/21 18:02 irritation Review of Systems Review of Systems: Yes all other systems are reviewed and are negative [facility] Past Medical History Medical History HTN (hypertension) Social History Social History Alcohol intake: current Patient Tobacco Use Status: Current everyday Tobacco user Substance Use Type: Marijuana Advance Directives: No Advance Directives Information Provided: No Physical Exam Vital Signs: Vital Signs: Last Vital Signs Temp 98.1 F 08/19/22 23:18 Pulse 76 08/19/22 23:18 Resp 16 08/19/22 23:18 BP 146/71 H 08/19/22 23:18 Pulse Ox 98 08/19/22 23:18 O2 Del Method 08/19/22 23:18 BMI result Body Mass Index 33.9 Appearance: Alert. Oriented X3. No acute distress. Eyes: PERRLA, No Nystagmus ENT: Pharynx normal. Oral Mucosa moist nares clear Neck: Normal inspection. Neck supple. CVS: Normal heart rate and rhythm. Pulses normal. Respiratory: No respiratory distress. Equal air entry bilateral, no wheezing/rales/rhonchi Abdomen: Soft and nontender. Bowel sounds are present, no mass palpable, no CVA tenderness Skin: Skin warm and dry. Normal skin color. Normal skin turgor. Extremities: No lower extremity edema. No calf tenderness Neuro: Oriented X 3. No motor deficit. No sensory deficit.No cerebellar signs , cranial nerves II-XII intact Medications Administered Discontinued Medications Generic Name Dose Route Start Last Admin Trade Name Freq PRN Reason Stop Dose Admin Albuterol Sulfate 2 puff 08/20/22 00:49 08/20/22 01:16 Albuterol Sulfate 90 Mcg 8 Gm Inhaler INHALE 08/20/22 00:50 2 puff ONCE ONE Administration Prednisone 40 mg 08/20/22 00:50 08/20/22 01:02 Prednisone 20 Mg Tablet PO 08/20/22 00:51 40 mg ONCE ONE Administration MDM - URI/Sore Throat MDM Narrative Medical decision making narrative: Patient acute bronchit with normal EKG normal troponin x-ray negative discharge patient home on antibiotics Differential Diagnosis Differential diagnosis: Likely bronchitis Lab Data Attestation: I reviewed the patient's lab results. Result diagrams: 08/19/22 22:59 08/19/22 22:59 Labs: Lab Results 08/19/22 08/19/22 08/19/22 Range/Units 22:59 22:59 22:59 WBC 7.9 (4.8-10.8) X10*3/uL RBC 5.47 (4.60-5.80) X10*6/uL Hgb 16.8 (14.0-18.0) g/dl Hct 48.0 (42.0-52.0) % MCV 87.8 (80.0-98.0) fL MCH 30.7 (27.0-33.0) pg MCHC 35.0 (31.0-36.0) g/dl RDW 12.0 (11.0-16.0) % Plt Count 226 (160-400) X10*3/uL MPV 10.2 (9.4-12.4) fL Immature Gran % (Auto) 0.3 (0.0-0.4) % Neut % (Auto) 45.0 (45-73) % Lymph % (Auto) 36.1 (20-40) % [place] % (Auto) 8.2 (2-11) % Eos % (Auto) 9.0 H (0-4) % Baso % (Auto) 1.4 (0-2) % Lymph # (Auto) 2.8 (1.2-4.9) X10*3/uL [place] # (Auto) 0.6 (0.1-1.2) X10*3/uL Eos # (Auto) 0.7 H (0.0-0.4) X10*3/uL Baso # (Auto) 0.1 (0.0-0.2) X10*3/uL Abs Immat Gran (auto) 0.02 (0.00-0.03) X10*3/uL Absolute Neuts (auto) 3.5 (2.0-8.3) x10*3/uL Absolute Nucleated RBC 0.000 (0.0-0.012) X10*3/uL Nucleated RBC % (auto) 0.0 (0.0-0.2) /100WBC Sodium 136 (135-145) mmol/L Potassium 4.1 (3.3-5.1) mmol/L Chloride 103 (96-108) mmol/L Carbon Dioxide 20 L (22-29) mmol/L Anion Gap 17 (12-20) BUN 17 H (9-16) mg/dL Creatinine 1.18 (0.5-1.4) mg/dL Estim Creat Clear Calc 102.7 Estimated GFR > 60 Random Glucose 113 (60-115) mg/dL Calcium 9.5 (8.4-10.2) mg/dL Total Bilirubin 0.6 (0.0-1.0) mg/dL AST 31 (5-37) U/L ALT 37 (0-40) U/L Alkaline Phosphatase 104 (39-117) U/L Troponin I High Sens < 3.5 (<3.5-35.0) ng/L Total Protein 7.8 (6.5-8.0) g/dL Albumin 4.6 (3.5-5.0) g/dL Influenza Type A (ROSALINDA) (Negative) Influenza Type B (ROSALINDA) (Negative) Influenza A & B Note 08/19/22 Range/Units 22:59 WBC (4.8-10.8) X10*3/uL RBC (4.60-5.80) X10*6/uL Hgb (14.0-18.0) g/dl Hct (42.0-52.0) % MCV (80.0-98.0) fL MCH (27.0-33.0) pg MCHC (31.0-36.0) g/dl RDW (11.0-16.0) % Plt Count (160-400) X10*3/uL MPV (9.4-12.4) fL Immature Gran % (Auto) (0.0-0.4) % Neut % (Auto) (45-73) % Lymph % (Auto) (20-40) % [place] % (Auto) (2-11) % Eos % (Auto) (0-4) % Baso % (Auto) (0-2) % Lymph # (Auto) (1.2-4.9) X10*3/uL [place] # (Auto) (0.1-1.2) X10*3/uL Eos # (Auto) (0.0-0.4) X10*3/uL Baso # (Auto) (0.0-0.2) X10*3/uL Abs Immat Gran (auto) (0.00-0.03) X10*3/uL Absolute Neuts (auto) (2.0-8.3) x10*3/uL Absolute Nucleated RBC (0.0-0.012) X10*3/uL Nucleated RBC % (auto) (0.0-0.2) /100WBC Sodium (135-145) mmol/L Potassium (3.3-5.1) mmol/L Chloride (96-108) mmol/L Carbon Dioxide (22-29) mmol/L Anion Gap (12-20) BUN (9-16) mg/dL Creatinine (0.5-1.4) mg/dL Estim Creat Clear Calc Estimated GFR Random Glucose (60-115) mg/dL Calcium (8.4-10.2) mg/dL Total Bilirubin (0.0-1.0) mg/dL AST (5-37) U/L ALT (0-40) U/L Alkaline Phosphatase (39-117) U/L Troponin I High Sens (<3.5-35.0) ng/L Total Protein (6.5-8.0) g/dL Albumin (3.5-5.0) g/dL Influenza Type A (ROSALINDA) Negative (Negative) Influenza Type B (ROSALINDA) Negative (Negative) Influenza A & B Note See Note ECG Data Attestation: I personally reviewed and interpreted this ECG as follows: Interpretation: Normal sinus rhythm heart rate 68 beats per minute incomplete RBBB no acute ST-T changes no acute ischemia Discharge Plan Discharge Clinical Impression: Acute bronchitis Patient Disposition: Home, Self-Care Instructions: Acute Bronchitis (ED) Additional Instructions: Take albuterol inhaler as advised Prednisone as prescribed Follow with PCP if any concerns Prescriptions: New prednisone 20 mg tablet 40 mg PO DAILY Qty: 10 0RF albuterol sulfate [ProAir HFA] 90 mcg/actuation HFA aerosol inhaler 2 puff inhalation Q4-6H PRN (Reason: shortness of breath or wheezing) Qty: 8.5 0RF No Action prednisone 20 mg tablet 60 mg PO DAILY 7 Days Qty: 21 0RF valacyclovir [Valtrex] 1 gram tablet 1,000 mg PO TID 7 Days Qty: 21 0RF Refresh Lacri-Lube 56.8-42.5 % ointment 1 appl ophthalmic-Right BEDTIME Qty: 3.5 2RF morphine 15 mg tablet 15 mg PO Q4-6H PRN (Reason: pain) Qty: 10 0RF Rx Instructions: The patient may ask for partial fill valacyclovir [Valtrex] 1 gram tablet 1,000 mg PO Q8H 7 Days Qty: 21 0RF metoprolol succinate 50 mg tablet extended release 24 hr 50 mg PO DAILY Qty: 10 0RF Eliquis 5 mg tablet 5 mg PO BID Qty: 14 0RF Interventions: ED Discharge Assessment Last Done: 08/20/22 01:38 Discharge Date/Time: 08/20/22 01:38
[2022-08-20] MEDS: predniSONE 20 MG TABLET 40 MG PO (01:02)
[2022-08-20] MEDS: Albuterol Sulfate 90 MCG 8 GM INHALER 2 PUFF INHALE (01:16)
--- NOTE | 2022-08-20 01:37 | PC.NURSE ---
Discharge instructions reviewed with pt. Pt verbalizes understanding.
== END 2022-08-20 01:38 | disposition home or self-care (01) ==
PROVIDERS: Emergency Provider Internal Medicine
DX: J20.9 Acute bronchitis, unspecified (principal); I10 Essential (primary) hypertension; I48.91 Unspecified atrial fibrillation; F17.200 Nicotine dependence, unspecified, uncomplicated; F12.90 Cannabis use, unspecified, uncomplicated; Z79.01 Long term (current) use of anticoagulants; Z79.82 Long term (current) use of aspirin; Z79.899 Other long term (current) drug therapy
CPT/HCPCS: 71046; 80053; 84484; 85025; 87502; 93005; 99284